=== PATIENT | male | born 1945 | race Two or more races ===

== ENCOUNTER 2022-04-12 09:48 | Emergency (ER) | payer OTHER ==
[~2022-04-12] VITALS: Ht 165.1 cm; Wt 54.4 kg
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
[2022-04-12] MEDS ORDERED: NALOXONE PREFILLED SYRINGE 2 MG/2 ML SYRINGE ONE (10:17)
[2022-04-12] MEDS ORDERED: NALOXONE PREFILLED SYRINGE 2 MG/2 ML SYRINGE IM ONE (10:30)
--- NOTE | 2022-04-12 12:41 | NUR ---
Patient discharged to [facility] unit#[id number] in stable condition. Written and verbal after care instructions given. Patient verbalizes understanding of instruction.
[2022-04-12 12:42] VITALS: BP 124/61
== END 2022-04-12 12:42 ==
LOC: ER 10:00
DX: S01.81XA Laceration without foreign body of other part of head, initial encounter (principal); I10 Essential (primary) hypertension; Z59.00 Homelessness unspecified; W22.8XXA Striking against or struck by other objects, initial encounter; Y93.89 Activity, other specified; Y92.89 Other specified places as the place of occurrence of the external cause; Y99.8 Other external cause status
CPT/HCPCS: 12011; 70450; 72125; 82962; 96372; 99284; A6403; J2310

== ENCOUNTER 2022-04-13 11:16 | Emergency (ER) | payer OTHER ==
[~2022-04-13] VITALS: Ht 172.7 cm; Wt 68.9 kg
--- NOTE | 2022-04-13 12:18 | NUR ---
DR BURTON AT BEDSIDE W/ PT.
[2022-04-13 12:30] VITALS: BP 109/75
--- NOTE | 2022-04-13 12:40 | NUR ---
PT MEDICALLY CLEARED, DISCHARGE TO [facility] IN STABLE CONDITION.
== END 2022-04-13 12:40 ==
LOC: ER 11:28
DX: R07.89 Other chest pain (principal); I10 Essential (primary) hypertension; Z59.00 Homelessness unspecified
CPT/HCPCS: 71045-TC